=== PATIENT | female | born 1965 | race Caucasian/White ===

== ENCOUNTER → 2023-07-08 08:44 | Outpatient (REF) | payer BC, SELFPAY ==
[2023-07-08 10:25] LABS: % Basophils 0.7 % (0-2); % Eosinophils 2.5 % (0-6); % Immature Granulocytes 0.2 % (0-0.5); % Lymphocytes 32.8 % (20.5-51.1); % Monocytes 11.3 % (1.7-9.3); % Neutrophils 52.5 % (42.2-75.2); Absolute Eosinophils 0.2 10^3/uL (0-0.7); Absolute Monocytes 0.7 10^3/uL (0.1-0.6); Absolute Neutrophils 3.2 10^3/uL (1.4-6.5); Hematocrit 35.4 % (37.0-47.0); Hemoglobin 11.9 g/dL (12.0-16.0); Mean Corp Hgb Conc. 33.6 g/dL (33.0-37.0); Mean Corpuscular Hgb 31.3 pg (27.0-31.0); Mean Corpuscular Volume 93.2 fL (81.0-99.0); Mean Platelet Volume 10.1 fL (7.4-10.4); Nucleated Red Blood Cells % 0 %; Platelet Count 391 10^3/uL (130-400); Red Cell Dist. Width 14.4 % (11.5-14.5); White Blood Cell Count 6.1 10^3/uL (4.8-10.8)
[2023-07-08 12:24] LABS: ALT (SGPT) 11 U/L (0-35); AST (SGOT) 23 U/L (14-36); Albumin 4.7 g/dl (3.5-5.0); Alkaline Phosphatase 50 U/L (38-126); Blood Urea Nitrogen 13 mg/dl (7-17); Calcium 9.6 mg/dl (8.4-10.2); Carbon Dioxide 28 mmol/L (22-30); Chloride 103 mmol/L (98-107); Glucose 82 mg/dl (70-99); Potassium 4.8 mmol/L (3.5-5.1); Sodium 133 mmol/L (135-145); Total Bilirubin 0.4 mg/dl (0.2-1.3); Total Protein 7.4 g/dl (6.3-8.2); eGFR > 60.00
== END ==
LOC: RCS 08:44
PROVIDERS: ATTENDING PHYSICIAN Surgery Plastic and Reconstructive Surgery
DX: Z01.818 Encounter for other preprocedural examination (principal)
CPT/HCPCS: 36415; 80053; 85025; 93005

== ENCOUNTER → 2023-07-22 07:30 | Outpatient (REF) | payer BC, SELFPAY | LOC: CLAB 07:30 | PROVIDERS: ATTENDING PHYSICIAN Surgery Plastic and Reconstructive Surgery | DX: K00-K95 Diseases of the digestive system (principal) | CPT/HCPCS: 88305 ==

== ENCOUNTER 2023-08-07 15:43 | Emergency (ER) | payer BC, SELFPAY ==
[2023-08-07 15:54] VITALS: BP 165/96
--- NOTE | 2023-08-07 17:10 | ED.GENMED ---
History of Present Illness
General
Chief Complaint: Musculo-Skeletal Complaint
Source: patient
Exam Limitations: none
Time Seen by Provider: 08/07/23 16:17
Nursing documentation reviewed up to this point in time: agreed with
Travel History
Have you had any contact with someone who has COVID-19?: No
Do you have any symptoms of coronavirus? Fever > 100 degrees, chills, cough, shortness of breath, sore throat, loss of taste or smell, muscle aches, or headache?: No
History of Present Illness
History of Present Illness:
Patient is a 57-year-old female presenting to the emergency department after tripping on a step landing directly on her left index causing deformity and laceration. Denies additional unable to move the finger denies any numbness or weakness.
Review of Systems
Review of Systems
Allergies reviewed?: Yes
All Other Systems: ROS reviewed and negative except as documented in HPI and ROS
Phy Exam
Physical Exam
Physical Exam:
GENERAL: Alert , in no apparent distress
EYE: pupils equal and reactive
NECK: Supple, no significant adenopathy.
ENT: o/p clr, mmm.
CARDIAC: Regular rate and rhythm .
LUNGS: Clear breath sounds bilaterally, no acute respiratory distress, no wheezes/rales/rhonchi
ABDOMEN: Soft, without focal tenderness, no r/g, no cvat
NEUROLOGICAL: Alert and oriented, no focal neuro deficits
SKIN: Warm and dry, skin intact.
MUSCULOSKELETAL: Deformity swelling to the left index finger deformity at the PIP also overlying laceration on the palmar aspect. Only 2 cm in length, well perfused.
PSYCH: Normal and appropriate interaction.
Course
Orders/Labs/Results
Orders:
Orders
08/07/23 15:59
Finger(s)/Thumb 2 View Lt [CR Finger(s)/thumb Min 2 Vw Lt] Urgent
Comment:
Reason For Exam: pain injury
Indicate Which Finger:: Index Finger
08/07/23 16:51
CR Finger(s)/thumb Min 2 Vw Lt Urgent
Reason For Exam: post reduction
08/07/23 16:55
Cefdinir [Omnicef] 300 mg PO NOW STA
Tetanus/Diphth/Acelpertussis [Adacel] 0.5 ml IM .ONCE ONE
Vital Signs
Initial and Last Documented VS:
Initial Vital Signs
Temp Pulse Resp BP Pulse Ox
99.1 F 91 16 165/96 98
08/07/23 15:54 08/07/23 15:54 08/07/23 15:54 08/07/23 15:54 08/07/23 15:54
Last Documented Vital Signs
Temp Pulse Resp BP Pulse Ox
99.1 F 91 16 165/96 98
08/07/23 15:54 08/07/23 15:54 08/07/23 15:54 08/07/23 15:54 08/07/23 15:54
Procedures
Laceration Closure
Left Second Finger:
Status of Wound: clean
Size of Wound in cm: 2.5
Description of Wound Edges: sharp
Preparation: cleaned with saline
Anesthesia: 2% Lidocaine and Digital-Regional
Revision/Debridement: routine- no revision and irrigate-direct pressure
Wound exploration: explored to base- no FB and no tendon involvement
Type of Closure: single layer closure
Skin Closure Material: 4-0 nylon
Number of sutures: 3
Joint/Fracture Reduction
Left Proximal Second Finger:
Indication for procedure:: PIP dislocation left index finger
Procedure completed by: Myself
Consent form signed: No
If no, reason: Emergency procedure
Joint reduced: no treatment at this time (Digital block performed with)
Anesthesia/sedation: Regional block
Injury was: open
Further treatement: needs further treatment
Post reduction exam: stable
Capillary Refill: normal
Normal distal neurovascular exam?: Yes
MDM/Problems Addressed
MDM/Problems Addressed:
57-year-old female presenting to the emergency department today with concerns of a laceration and dislocation of the proximal interphalangeal joint of the left index finger. No signs of fracture on x-ray patient was given a tetanus shot started on
antibiotics Case was discussed with orthopedics and to follow-up closely as an outpatient otherwise sutures with 3 nonabsorbable sutures and splinted. Tolerated well return precautions given.
*Critical Care Note
Total Time (30-74mins, 75-104mins- exclusive of procedures): Not Applicable
ED Attending Note
-
Portions of this chart may have been created with voice recognition software.� Occasional wrong word or��sound alike� substitutions may have occurred due to the inherent limitations of voice recognition software.
Discharge Plan
Departure
Patient Disposition: Home (Routine Discharge)
Date of Disposition: 08/07/23
Time of Disposition: 17:42
Patient with high blood pressure during this ER visit?: No
Condition: Good
Covid-19: Not Applicable
Discharge Problem:
Dislocation of finger PIP joint, Finger laceration
Instructions: Finger Dislocation (DC), Laceration Repair With Stitches ED
Prescriptions:
New
cefdinir 300 mg capsule
300 mg PO BID 5 Days Qty: 10 0RF
oxycodone-acetaminophen [Percocet] 5-325 mg tablet
1 tab PO Q6HPRN PRN (Reason: pain) Qty: 7 0RF
Referrals:
NONE,* [Family Provider] -
Anupam Pascal MD [Active] - Follow up in 2-3 days
Activity Restrictions/Additional Instructions:
You came to the emergency department today with concerns of a finger dislocation laceration on the left hand. Please keep the splint in place and follow-up closely with the orthopedic doctor. Return to the emergency department any worsening, new
or concerning symptoms.
Interventions
Interventions:
*General Assessment Last Done: 08/07/23 18:41
*Nursing Disposition Last Done: 08/07/23 18:41
ED-Musculoskeletal Assessment Last Done: 08/07/23 18:41
Discharge Date and Time
Discharge Date/Time: 08/07/23 18:42
Print Language: [id number]
[2023-08-07] MEDS: OMNICEF 300 MG PO (17:11)
[2023-08-07] MEDS: ADACEL 0.5 ML IM (17:12)
== END 2023-08-07 18:42 | disposition home or self-care (01) ==
LOC: EMR 15:43
PROVIDERS: EMERGENCY PHYSICIAN Emergency Medicine
DX: S63.291A Dislocation of distal interphalangeal joint of left index finger, initial encounter (principal); S61.211A Laceration without foreign body of left index finger without damage to nail, initial encounter; W10.9XXA Fall (on) (from) unspecified stairs and steps, initial encounter
CPT/HCPCS: 99283; 26770; 12001; 90471; 73140; 90715